=== PATIENT | female | born 1980 | race Caucasian/White ===

== ENCOUNTER → 2017-03-14 | Outpatient (CLI) | payer OTHER | LOC: FIMAGING 15:39 | PROVIDERS: ATTEND Midwife | DX: O20.9 Hemorrhage in early pregnancy, unspecified (principal); R93.8 Abnormal findings on diagnostic imaging of other specified body structures; N83.11 Corpus luteum cyst of right ovary; O26.891 Other specified pregnancy related conditions, first trimester ==

== ENCOUNTER → 2017-08-24 | Outpatient (CLI) | payer SELFPAY | LOC: FIMAGING 15:08 | PROVIDERS: ATTEND Advanced Practice Midwife | DX: O09.511 Supervision of elderly primigravida, first trimester (principal); Z3A.01 Less than 8 weeks gestation of pregnancy ==